=== PATIENT | female | born 1985 | race Caucasian/White ===

== ENCOUNTER 2016-09-29 13:24 | Emergency (ER) | payer OTHER ==
[~2016-09-29] VITALS: Ht 162.6 cm; Wt 113.0 kg
[2016-09-29 13:34] VITALS: TEMP 36.9; Ht 162.6 cm; Wt 113.0 kg
[2016-09-29] MEDS ORDERED: SUMA50TA15 PO (13:48)
[2016-09-29] MEDS ORDERED: KETOROLAC TROMETHAMINE 30 MG/ML VIAL IV STA (13:48)
[2016-09-29] MEDS ORDERED: AMIT10TA6 PO (13:48)
[2016-09-29] MEDS ORDERED: SODIUM CHLORIDE 0.9% 500ML 500 ML IV STA (13:48)
[2016-09-29] MEDS ORDERED: CITA10TA8 PO (13:48)
[2016-09-29] MEDS ORDERED: AMPICILLIN/SULBACTAM SOD INJ 3,000 MG in SODIUM CHLORIDE 0.9% 100ML 100 ML IV ONE (14:00)
[2016-09-29 14:05] LABS: BASO % 0.4 %; BASO ABS # 0.03 K/uL (0-0.2); COMPLETE YES; EOS % 0.4 %; HEMATOCRIT 40.5 % (37-47); IG% 0.3 %; LYMPH % 23.7 %; LYMPH ABS # 1.58 K/uL (1.2-3.4); MEAN CELL VOLUME 93.1 fL (80-100); MEAN CORPUSCULAR HEMOGLOBIN 30.3 pg (25-34); MEAN CORPUSCULAR HGB CONC 32.6 g/dl (32-36); MEAN PLATELET VOLUME 9.7 fL (7.4-10.4); NEUT % 63.2 %; PLATELET COUNT 239 K/uL (130-400); RED BLOOD COUNT 4.35 M/uL (4.2-5.4); WHITE BLOOD COUNT 6.67 K/uL (4.8-10.8)
--- NOTE | 2016-09-29 14:16 | DIAGNOSTIC IMAGING REPORT ---
LEFT HAND MIN 3 VIEWS ROUTINE CLINICAL HISTORY: Dog bite to L dorsal hand with cellulitis COMPARISON: None. DISCUSSION: The bones and joint spaces appear intact. There is no evidence of fracture, dislocation or bony disease. Marked soft tissue edematous change dorsal to the metacarpals. No abnormal periosteal reaction IMPRESSION: Considerable soft tissue edema. No acute bony abnormality. Electronically signed by: Chivo Bonds M.D. 09/29/2016 2:15 PM Dictated Date/Time: 09/29/2016 2:11 PM
[2016-09-29 14:22] LABS: BUN/CREATININE RATIO 10.6 (10-20); CALCIUM 8.1 mg/dl (8.5-10.1); POTASSIUM 3.9 mmol/L (3.5-5.1)
[2016-09-29 14:23] LABS: C-REACTIVE PROTEIN 2.96 mg/dl (0-0.29)
[2016-09-29] MEDS ORDERED: OXYC1TAB3 PO (14:37)
[2016-09-29] MEDS ORDERED: AMOX875T PO (14:37)
[2016-09-29 15:03] VITALS: BP 139/85; PULSE 91; O2SAT 99
--- NOTE | 2016-09-29 15:13 | EMERGENCY ROOM VISIT NOTE ---
History First contact with patient: 13:39 Chief Complaint: BITE Stated Complaint: DOG BITE History of Present Illness The patient is a 31 year old female who presents to the Emergency Room with complaints of a dog bite to the left hand. The patient reports that the injury happened approximately 48 hours ago. She was bitten by her brother's dog. The dog is up-to-date on its immunizations, and the patient's tetanus immunization is also up-to-date. The patient now reports redness and swelling of the dorsum of the hand. She denies any pain extending into the wrist or forearm. She also denies any paresthesias or numbness of the fingers. She reports that flexion and extension of the fingers worsens her pain. She denies any fevers or chills. She rates her discomfort a 10 out of 10. The patient is right-hand- dominant. Review of Systems 10 system review was performed and was negative except for pertinent positives and negatives as indicated in history of present illness Past Medical/Surgical History Medical Problems: (1) Bronchitis (2) section (3) Preeclampsia Family History Diabetes mellitus FH: cancer Hypertension Social History Smoking Status: Current Every Day Smoker Alcohol Use: none Drug Use: none Marital Status: Housing Status: lives with significant other Occupation Status: employed Current/Historical Medications Scheduled Amitriptyline Hcl (Elavil), 10 MG PO HS Amoxicillin & Pot Clavulanate (Augmentin 875-125 mg), 1 TAB PO BID Ascorbic Acid (Vitamin C), 1,000 MG PO HS Citalopram Hydrobromide (Celexa), 10 MG PO HS Scheduled PRN Albuterol Hfa (Ventolin Hfa), 2-4 PUFFS INH Q6H PRN for SOB/Wheezing Oxycodone Ir (Roxicodone Ir), 1 TAB PO Q4H PRN for Pain Sumatriptan Succinate (Imitrex), 50 MG PO PRN PRN for Migraine Allergies Coded Allergies: No Known Allergies (Verified , 09/29/16) Physical Exam Vital Signs Date Time Temp Pulse Resp B/P (MAP) Pulse Ox O2 Delivery O2 Flow Rate FiO2 09/29/16 15:03 91 18 139/85 99 09/29/16 13:34 36.9 102 18 141/83 97 Room Air Physical Exam CONSTITUTIONAL: Healthy and well nourished. Alert and oriented X 3 with positive affect. Patient does not appear in any acute distress. HEENT: Normocephalic, atraumatic. Pupils equal, round and reactive. NECK: Full active range of motion without discomfort. RESPIRATORY: Clear to auscultation bilaterally with no wheezing, crackles, rhonchi or stridor. CARDIOVASCULAR: Regular rate and rhythm with no murmurs, rubs or gallops. MUSCULOSKELETAL: Examination of the left hand shows 2 puncture wounds at the dorsal base of the hand. She has mild digital swelling. The dorsum of the hand is erythematous. The wounds are scabbed over. There is no underlying fluctuance or peripheral induration. She has no tenderness to palpation or erythema through the palm or volar wrist region. Capillary refill of the fingers is less than 2 seconds. INTEGUMENTARY: No rash or other significant dermatologic conditions noted. NEUROLOGIC: No focal neurologic deficits noted. Left hand and fingers are sensory intact. Medical Decision & Procedures ER Provider Diagnostic Interpretation: My interpretation of left hand x-rays does not show any acute fractures, dislocation, rating pick foreign bodies or periosteal reactions. Radiologist report is as follows: LEFT HAND MIN 3 VIEWS ROUTINE CLINICAL HISTORY: Dog bite to L dorsal hand with cellulitis COMPARISON: None. DISCUSSION: The bones and joint spaces appear intact. There is no evidence of fracture, dislocation or bony disease. Marked soft tissue edematous change dorsal to the metacarpals. No abnormal periosteal reaction IMPRESSION: Considerable soft tissue edema. No acute bony abnormality. Laboratory Results 09/29/16 14:00 Red Blood Count 4.35, Mean Corpuscular Volume 93.1, Mean Corpuscular Hemoglobin 30.3, Mean Corpuscular Hemoglobin Concent 32.6, Mean Platelet Volume 9.7, Neutrophils (%) (Auto) 63.2, Lymphocytes (%) (Auto) 23.7, Monocytes (%) (Auto) 12.0, Eosinophils (%) (Auto) 0.4, Basophils (%) (Auto) 0.4, Neutrophils # (Auto ) 4.21, Lymphocytes # (Auto) 1.58, Monocytes # (Auto) 0.80, Eosinophils # (Auto ) 0.03, Basophils # (Auto) 0.03 09/29/16 14:00 Test 09/29/16 14:00 White Blood Count 6.67 K/uL (4.8-10.8) Red Blood Count 4.35 M/uL (4.2-5.4) Hemoglobin 13.2 g/dL (12.0-16.0) Hematocrit 40.5 % (37-47) Mean Corpuscular Volume 93.1 fL (80-100) Mean Corpuscular Hemoglobin 30.3 pg (25-34) Mean Corpuscular Hemoglobin Concent 32.6 g/dl (32-36) Platelet Count 239 K/uL (130-400) Mean Platelet Volume 9.7 fL (7.4-10.4) Neutrophils (%) (Auto) 63.2 % Lymphocytes (%) (Auto) 23.7 % Monocytes (%) (Auto) 12.0 % Eosinophils (%) (Auto) 0.4 % Basophils (%) (Auto) 0.4 % Neutrophils # (Auto) 4.21 K/uL (1.4-6.5) Lymphocytes # (Auto) 1.58 K/uL (1.2-3.4) Monocytes # (Auto) 0.80 K/uL (0.11-0.59) Eosinophils # (Auto) 0.03 K/uL (0-0.5) Basophils # (Auto) 0.03 K/uL (0-0.2) RDW Standard Deviation 48.3 fL (36.4-46.3) RDW Coefficient of Variation 14.2 % (11.5-14.5) Immature Granulocyte % (Auto) 0.3 % Immature Granulocyte # (Auto) 0.02 K/uL (0.00-0.02) Erythrocyte Sedimentation Rate 24 mm/hr (0-21) Anion Gap 6.0 mmol/L (3-11) Est Creatinine Clear Calc Drug Dose 101.3 ml/min Estimated GFR () 87.6 Estimated GFR (Non- 75.5 BUN/Creatinine Ratio 10.6 (10-20) Calcium Level 8.1 mg/dl (8.5-10.1) C-Reactive Protein 2.96 mg/dl (0-0.29) The above labs were reviewed. There is no leukocytosis. Sedimentation rate and CRP are moderately elevated. Remaining electrolytes are also normal. Medications Administered Medications (Trade) Dose Ordered Sig/Sandrine Route Start Time Stop Time Status Last Admin Dose Admin Sodium Chloride 500 ml @ 999 mls/hr Q31M STAT IV 09/29/16 13:48 09/29/16 14:18 DC 09/29/16 14:00 999 MLS/HR Ampicillin Sodium/ Sulbactam Sodium 3000 mg/Sodium Chloride 108 ml @ 200 mls/hr ONE ONCE IV 09/29/16 14:00 09/29/16 14:32 DC 09/29/16 14:10 200 MLS/HR Ketorolac Tromethamine (Toradol Inj) 30 mg NOW STAT IV 09/29/16 13:48 09/29/16 13:49 DC 09/29/16 14:00 30 MG Procedure 1. IV hydration: The patient received a normal saline 500 mL bolus 2. IV medications: Unasyn 3 g IV infusion. The patient was also administered Toradol 30 mg IVP for pain. ED Course Patient history and physical exam were performed. Nurse's notes were reviewed. Vital signs were reviewed, showing a blood pressure 141/83. Pulse rate is 102. The patient is currently afebrile. IV access was established, and labs were drawn. The patient was hydrated with normal saline, and received IV Unasyn and Toradol. X-rays of the left hand were normal. Review of labs shows an elevated sedimentation rate and CRP. White count is otherwise normal. The patient was instructed to return in 24 hours for wound recheck, returning sooner for any erythema or edema progressing into the wrist or forearm region. She was also instructed to return sooner for any developing infection. The patient was provided prescriptions for Augmentin and OxyIR 5 mg. She was also encouraged to alternate ibuprofen and Tylenol for additional baseline pain relief. The patient was happy with plan of care, voiced understanding of all discharge instructions, and rated her pain a 4 out of 10 at the time of discharge. Medical Decision [place] Drug Monitoring Program Search Results: patient reviewed within database, no issues identified Impression Primary Impression: Dog bite of left hand with infection Departure Information Prescriptions Oxycodone Ir (Roxicodone Ir) 5 Mg Tab 1 TAB PO Q4H Y for Pain, #15 TAB For Initial Treatment Prov: Florian Sorensen PA 09/29/16 Amoxicillin & Pot Clavulanate (Augmentin 875-125 mg) 1 Tab Tab 1 TAB PO BID for 10 Days, #20 TAB Prov: Florian Sorensen PA 09/29/16 Referrals No Doctor, Assigned (PCP) Patient Instructions [facility] Problem Qualifiers Primary Impression: Dog bite of left hand with infection Encounter type: initial encounter Qualified Codes: S61.452A - Open bite of left hand, initial encounter; L08.9 - Local infection of the skin and subcutaneous tissue, unspecified; W54.0XXA - Bitten by dog, initial encounter
[2016-11-12] MEDS ORDERED: VNTHFA/IN INH (11:28)
[2016-11-12] MEDS ORDERED: ASCO500T3 PO (13:48)
== END 2016-09-29 15:05 | disposition home or self-care (01) ==
LOC: C.EDB 13:26 → C.EDA 15:05
DX: S61.452A Open bite of left hand, initial encounter (principal); L08.9 Local infection of the skin and subcutaneous tissue, unspecified; W54.0XXA Bitten by dog, initial encounter; Y92.89 Other specified places as the place of occurrence of the external cause; F17.210 Nicotine dependence, cigarettes, uncomplicated; Z79.899 Other long term (current) drug therapy

== ENCOUNTER 2016-11-12 18:17 | Emergency (ER) | payer OTHER ==
[~2016-11-12] VITALS: Ht 164.5 cm; Wt 109.4 kg
[~2016-11-12 18:17] MED LIST: AMIT10TA6 PO; ASCO500T3 PO; CITA10TA8 PO; OXYC1TAB3 PO; SUMA50TA15 PO; VNTHFA/IN INH
[2016-11-12 18:21] VITALS: TEMP 36.9; Ht 164.5 cm; Wt 109.4 kg
[2016-11-12] MEDS ORDERED: KETOROLAC TROMETHAMINE 30 MG/ML VIAL IV STA (19:42)
[2016-11-12] MEDS ORDERED: SODIUM CHLORIDE 0.9% 1000ML 1,000 ML IV STA ×2 (19:42)
[2016-11-12] MEDS ORDERED: ONDANSETRON INJ 2 MG/ML 2 ML VIAL IV STA (19:42)
[2016-11-12] MEDS ORDERED: MoRPHine SULFATE 4 MG/ML 1 ML CARP\\VIAL IV STA (19:42)
[2016-11-12 19:56] LABS: BASO % 0.2 %; BASO ABS # 0.02 K/uL (0-0.2); COMPLETE YES; EOS % 0.9 %; HEMATOCRIT 42.2 % (37-47); IG% 0.1 %; LYMPH % 30.7 %; LYMPH ABS # 3.19 K/uL (1.2-3.4); MEAN CELL VOLUME 92.5 fL (80-100); MEAN CORPUSCULAR HEMOGLOBIN 30.5 pg (25-34); MEAN CORPUSCULAR HGB CONC 32.9 g/dl (32-36); MEAN PLATELET VOLUME 10.3 fL (7.4-10.4); MONO % 5.7 %; NEUT % 62.4 %; PLATELET COUNT 267 K/uL (130-400); RED BLOOD COUNT 4.56 M/uL (4.2-5.4)
[2016-11-12 20:05] LABS: URINE APPEARANCE CLEAR (CLEAR); URINE BILIRUBIN NEG (NEG); URINE COLOR YELLOW; URINE NITRITE NEG (NEG); URINE PH 5.5 (4.5-7.5); UROBILINOGEN NEG (NEG)
[2016-11-12 20:06] LABS: MANUAL MICROSCOPIC REQUIRED? NO; REVIEW REQ? NO
[2016-11-12 20:15] LABS: BUN/CREATININE RATIO 10.5 (10-20); CREATININE 0.86 mg/dl (0.60-1.20); POTASSIUM 3.7 mmol/L (3.5-5.1)
[2016-11-12] MEDS ORDERED: IMT50 PO (20:15)
[2016-11-12] MEDS ORDERED: AMT10 PO (20:15)
[2016-11-12] MEDS ORDERED: CITA10TA4 PO (20:15)
[2016-11-12 20:19] VITALS: BP 137/67; PULSE 82; O2SAT 98
[2016-11-12 20:25] LABS: THYROID STIMULATING HORMONE 2.04 uIu/ml (0.300-4.500)
--- NOTE | 2016-11-12 21:21 | DIAGNOSTIC IMAGING REPORT ---
ULTRASOUND OF THE PELVIS CLINICAL HISTORY: Postcoital pelvic pain. Irregular menses. COMPARISON STUDY: No priors. TECHNIQUE: Real-time, grayscale, and color flow sonography of the pelvis is performed both transabdominally and endovaginally. Images are reviewed in the transverse and longitudinal planes. FINDINGS: Uterus: The retroflexed uterus is normal in size and echotexture, measuring 8.6 x 4.4 x 5.9 cm. Small the both in cysts are incidentally noted. Endometrium: The endometrium is normal in appearance, and the endometrial stripe is mildly thickened measuring up to 1.3 cm. Ovaries: The ovaries are normal in size and morphology. The right ovary measures 3.6 x 2.4 x 3.1 cm and the left ovary measures 2.5 x 1.9 x 2.6 cm. The right ovary was only seen transabdominally. Small follicles are identified. Normal Doppler waveforms are shown within both ovaries. Pelvis: There is no free fluid in the cul-de-sac. No concerning adnexal lesion is seen. IMPRESSION: No acute sonographic abnormality is identified. Electronically signed by: Cortez Ugarte M.D. 11/12/2016 9:20 PM Dictated Date/Time: 11/12/2016 9:18 PM
--- NOTE | 2016-11-12 22:02 | EMERGENCY ROOM VISIT NOTE ---
History First contact with patient: 19:08 Chief Complaint: ABDOMINAL PAIN Stated Complaint: POSSIBLE ECTOPIC PREG, SPOTTING Nursing Triage Summary: abd pain and cramping, symptoms. History of Present Illness Patient is a 31-year-old female whom the emergency department for evaluation of pelvic pain, spotting and irregular menses. She states that she has had abnormal menstrual periods for the last 2 months. She states that she has normal bleeding for about 3 days, then the bleeding stops for a couple days , that she has light bleeding for another 1-2 days. Her last menstrual period was 10/23/16. She is also noted pain after intercourse for a couple of weeks, although she denies dyspareunia. In the last week she has had cramping in the right lower quadrant, over her section scar. In the last 2 days it has become worse and more constant. She is status post 3, had a tubal ligation with her last in 2012. She has not been seen by OB/ [facility] since then. She did not have her 6 week follow-up. She is not had a Pap smear in roughly 4 years. She denies a history of abnormal Pap smears. She is not experiencing any vaginal discharge. No prior history of ovarian cysts or pelvic infections. She took several home tests which were negative. She called [facility] today to make an appointment, which is set up for January. She became concerned when office staff could not find documentation of her tubal ligation in her [facility] record. She is concerned that she could be and that it could be an ectopic . She denies any urinary symptoms. She states that her bowel movements range between constipation and diarrhea, but this is the normal for her. She does admit that she is involved with a new sexual partner, has been having unprotected intercourse since August of this year. Review of Systems Review of systems as per HPI. All other systems reviewed were negative. 10 systems reviewed. Past Medical/Surgical History Medical Problems: (1) Anxiety (2) Asthma, Unspecified (3) Back pain with sciatica of right side (4) Bronchitis (5) Bronchitis (6) section (7) Depressive Disorder Nec (8) Dermatitis (9) Dermatitis (10) Dog bite (11) Dog bite of left hand with infection (12) Dog bite of left hand with infection (13) Facial abrasion (14) Heel pain, bilateral (15) Heel spur (16) Pain, dental (17) Preeclampsia (18) Preseptal cellulitis of left eye (19) Spasm of back muscles (20) Spasm of back muscles Surgical Problems: (1) Hx of section Electronic medical records are reviewed and summarized as above/below. See Problem List. Family History Diabetes mellitus FH: cancer Hypertension Social History Smoking Status: Current Every Day Smoker Alcohol Use: none Drug Use: none Marital Status: in relationship Housing Status: lives with family, lives with significant other Occupation Status: employed Current/Historical Medications Scheduled Amitriptyline HCl (Amitriptyline HCl), 10 MG PO HS Ascorbic Acid (Vitamin C), 1,000 MG PO HS Citalopram Hydrobromide (Citalopram Hydrobromide), 10 MG PO HS Scheduled PRN Albuterol Hfa (Ventolin Hfa), 2 PUFFS INH QID PRN for Cough/Shortness of Breath Sumatriptan Succinate (Sumatriptan Succinate), 50 MG PO UD PRN for Migraine Allergies Coded Allergies: No Known Allergies (Verified , 09/29/16) Physical Exam Vital Signs Date Time Temp Pulse Resp B/P (MAP) Pulse Ox O2 Delivery O2 Flow Rate FiO2 11/12/16 20:19 82 17 137/67 98 Room Air 11/12/16 18:21 36.9 102 17 145/93 98 Room Air Physical Exam CONSTITUTIONAL: Patient is an overweight 31-year-old white female who is awake and alert and in mild distress due to her right-sided abdominal pain. EYES: Pupils equal, round, reactive to light and accommodation. EOMs intact without nystagmus. Sclera are anicteric. ENT: Tympanic membranes intact, with normal landmarks. External canals are clear. Oral and nasopharynx are clear. Mucous membranes are moist, no lesions , tongue and gums appear normal. NECK: No bruits auscultated. Supple without lymphadenopathy. No thyromegaly. No meningeal signs. Full active range of motion without discomfort. CARDIOVASCULAR: Regular rate and rhythm, with normal S1 and S2, no murmur or gallop or rub is heard. No carotid bruits auscultated. No JVD. Peripheral pulses easily palpable. RESPIRATORY: Breath sounds equal and clear to auscultation without wheezes, rales, or rhonchi heard. Full and equal chest expansion without accessory muscle use or retractions. ABDOMEN: Bowel sounds are present. Abdomen is soft, obese, nondistended, tender to deep palpation in the right lower quadrant, just off of the end of her scar from her section which is well healed. There is no guarding, rebound or rigidity. INTEGUMENTARY: No lesions or rash, normal skin turgor. LYMPH: No lymphadenopathy. Medical Decision & Procedures ER Provider Diagnostic Interpretation: ULTRASOUND OF THE PELVIS CLINICAL HISTORY: Postcoital pelvic pain. Irregular menses. COMPARISON STUDY: No priors. TECHNIQUE: Real-time, grayscale, and color flow sonography of the pelvis is performed both transabdominally and endovaginally. Images are reviewed in the transverse and longitudinal planes. FINDINGS: Uterus: The retroflexed uterus is normal in size and echotexture, measuring 8.6 x 4.4 x 5.9 cm. Small the both in cysts are incidentally noted. Endometrium: The endometrium is normal in appearance, and the endometrial stripe is mildly thickened measuring up to 1.3 cm. Ovaries: The ovaries are normal in size and morphology. The right ovary measures 3.6 x 2.4 x 3.1 cm and the left ovary measures 2.5 x 1.9 x 2.6 cm. The right ovary was only seen transabdominally. Small follicles are identified. Normal Doppler waveforms are shown within both ovaries. Pelvis: There is no free fluid in the cul-de-sac. No concerning adnexal lesion is seen. IMPRESSION: No acute sonographic abnormality is identified. Laboratory Results 11/12/16 19:45 Red Blood Count 4.56, Mean Corpuscular Volume 92.5, Mean Corpuscular Hemoglobin 30.5, Mean Corpuscular Hemoglobin Concent 32.9, Mean Platelet Volume 10.3, Neutrophils (%) (Auto) 62.4, Lymphocytes (%) (Auto) 30.7, Monocytes (%) (Auto) 5.7, Eosinophils (%) (Auto) 0.9, Basophils (%) (Auto) 0.2, Neutrophils # (Auto) 6.50, Lymphocytes # (Auto) 3.19, Monocytes # (Auto) 0.59, Eosinophils # (Auto) 0.09, Basophils # (Auto) 0.02 11/12/16 19:45 Test 11/12/16 19:12 11/12/16 19:45 Urine Color YELLOW Urine Appearance CLEAR (CLEAR) Urine pH 5.5 (4.5-7.5) Urine Specific [place] 1.010 (1.000-1.030) Urine Protein NEG (NEG) Urine Glucose (UA) NEG (NEG) Urine Ketones NEG (NEG) Urine Occult Blood NEG (NEG) Urine Nitrite NEG (NEG) Urine Bilirubin NEG (NEG) Urine Urobilinogen NEG (NEG) Urine Leukocyte Esterase NEG (NEG) White Blood Count 10.40 K/uL (4.8-10.8) Red Blood Count 4.56 M/uL (4.2-5.4) Hemoglobin 13.9 g/dL (12.0-16.0) Hematocrit 42.2 % (37-47) Mean Corpuscular Volume 92.5 fL (80-100) Mean Corpuscular Hemoglobin 30.5 pg (25-34) Mean Corpuscular Hemoglobin Concent 32.9 g/dl (32-36) Platelet Count 267 K/uL (130-400) Mean Platelet Volume 10.3 fL (7.4-10.4) Neutrophils (%) (Auto) 62.4 % Lymphocytes (%) (Auto) 30.7 % Monocytes (%) (Auto) 5.7 % Eosinophils (%) (Auto) 0.9 % Basophils (%) (Auto) 0.2 % Neutrophils # (Auto) 6.50 K/uL (1.4-6.5) Lymphocytes # (Auto) 3.19 K/uL (1.2-3.4) Monocytes # (Auto) 0.59 K/uL (0.11-0.59) Eosinophils # (Auto) 0.09 K/uL (0-0.5) Basophils # (Auto) 0.02 K/uL (0-0.2) RDW Standard Deviation 48.5 fL (36.4-46.3) RDW Coefficient of Variation 14.2 % (11.5-14.5) Immature Granulocyte % (Auto) 0.1 % Immature Granulocyte # (Auto) 0.01 K/uL (0.00-0.02) Anion Gap 6.0 mmol/L (3-11) Est Creatinine Clear Calc Drug Dose 117.2 ml/min Estimated GFR () 105.1 Estimated GFR (Non- 90.7 BUN/Creatinine Ratio 10.5 (10-20) Calcium Level 9.0 mg/dl (8.5-10.1) Thyroid Stimulating Hormone (TSH) 2.040 uIu/ml (0.300-4.500) Human Chorionic Gonadotropin, Quant < 1 mIU/mL Medications Administered Medications (Trade) Dose Ordered Sig/Sandrine Route Start Time Stop Time Status Last Admin Dose Admin Ketorolac Tromethamine (Toradol Inj) 30 mg NOW STAT IV 11/12/16 19:42 11/12/16 19:44 DC 11/12/16 19:42 30 MG Sodium Chloride 1,000 ml @ 999 mls/hr Q1H1M STAT IV 11/12/16 19:42 11/12/16 20:42 DC 11/12/16 19:42 999 MLS/HR Sodium Chloride 1,000 ml @ 250 mls/hr Q4H STAT IV 11/12/16 19:42 11/12/16 22:09 DC 11/12/16 19:42 250 MLS/HR Ondansetron HCl (Zofran Inj) 4 mg NOW STAT IV 11/12/16 19:42 11/12/16 19:44 DC 11/12/16 19:42 4 MG Morphine Sulfate (MoRPHine SULFATE INJ) 4 mg NOW STAT IV 11/12/16 19:42 11/12/16 19:44 DC 11/12/16 19:42 4 MG ED Course The patient was seen and evaluated as above. Her old records are reviewed. IV lock was initiated and she was hydrated with normal saline solution. She was medicated with Toradol 30 mg, morphine 4 mg and Zofran 4 mg IV. Laboratory studies were collected including CBC with differential, BMP, TSH and quantitative hCG. Urinalysis was also performed. Laboratory studies noted a normal white count. H&H 13.9 and 42.2. Electrolytes are within normal limits. Renal functions are not elevated. TSH is indicative of a euthyroid state and quantitative hCG is less than 1. Urinalysis was completely clear without signs of infection. Pelvic ultrasound was obtained, and was unremarkable. There were no adnexal lesions, no free pelvic fluid, normal Doppler waveforms were shown to both ovaries. Patient ultrasound report had just resulted, and I had ordered a pelvic set up for cultures, when I was notified by her primary nurse, Pratima Hanson, at the patient had left the emergency department prior to completion of her treatment. She reported she was leaving with her friend to go have a cigarette. She was told that there is no smoking on hospital property and she expressed understanding of this. Please refer to Pratima Hanson's documentation for further information. As the patient left the emergency department prior to completion of her care, she was discharged AMA. Differential diagnoses entertained included UTI, pyelonephritis, , ectopic , ovarian cyst, ovarian torsion, PID, tubo-ovarian abscess, appendicitis, hernia, among others. Medication reconciliation: I attest that I have personally reviewed the patient' s current medication list. Blood pressure screening: Patient was found to have a slightly elevated blood pressure due to circumstances. I do not believe that the patient requires hypertension monitoring. Medical Decision see Emergency Department course [place] Drug Monitoring Program Search Results: patient reviewed within database, no issues identified Impression Primary Impression: Pelvic pain Departure Information Referrals No Doctor, Assigned (PCP) Patient Instructions [facility]
== END 2016-11-12 21:35 | disposition left against medical advice (07) ==
LOC: C.EDB 18:19
DX: R10.2 Pelvic and perineal pain (principal); N92.6 Irregular menstruation, unspecified; F41.9 Anxiety disorder, unspecified; J45.909 Unspecified asthma, uncomplicated; F32.9 Major depressive disorder, single episode, unspecified; F17.200 Nicotine dependence, unspecified, uncomplicated; Z98.51 Tubal ligation status; Z83.3 Family history of diabetes mellitus; Z82.49 Family history of ischemic heart disease and other diseases of the circulatory system

== ENCOUNTER 2016-11-12 21:48 | Emergency (ER) | payer OTHER ==
[~2016-11-12] VITALS: Ht 162.6 cm; Wt 109.3 kg
[~2016-11-12 21:48] MED LIST changes: +AMT10 PO; +CITA10TA4 PO; +IMT50 PO
[2016-11-12 21:50] VITALS: Ht 162.6 cm; Wt 109.3 kg
--- NOTE | 2016-11-12 23:08 | DIAGNOSTIC IMAGING REPORT ---
CT SCAN OF THE ABDOMEN AND PELVIS WITHOUT IV CONTRAST CLINICAL HISTORY: Right flank pain. COMPARISON STUDY: Pelvic ultrasound dated 11/12/2016. TECHNIQUE: CT scan of the abdomen and pelvis is performed from the lung bases to the proximal femora. Images are reviewed in the axial, sagittal, and coronal planes. IV contrast was not administered for this examination as per the referring clinician. Note that the examination is suboptimal without oral and IV contrast. Automated dose control exposure was utilized. A dose lowering technique was utilized adhering to the principles of ALARA. CT DOSE: 1622.90 mGy.cm FINDINGS: Lung bases: The heart is normal in size and without pericardial effusion. The lung bases are clear. Liver: The unenhanced liver is enlarged, measuring 20.3 cm in length. The liver demonstrates diminished attenuation consistent with mild hepatic steatosis. Fatty sparing is seen adjacent to gallbladder fossa. There is no intrahepatic biliary ductal dilatation. Gallbladder: Unremarkable. Spleen: Normal in size and attenuation. Pancreas: Unremarkable. Adrenal glands: Unremarkable. Kidneys: The unenhanced kidneys are normal in size and without hydronephrosis. There are no renal calculi identified. There is no evidence of contour deforming renal mass lesion. Abdominal vasculature: The abdominal aorta is normal in course and caliber. Bowel: The small bowel and colon are normal in course and caliber. The appendix is well-visualized and normal. Peritoneum: There is no intraperitoneal free air or abdominal ascites. There is a fat-containing umbilical hernia. A naval piercing is noted. Lymphadenopathy: None. Pelvic viscera: The bladder, uterus, and adnexa are normal as visualized. Small ovarian follicles are noted. Trace free fluid in the cul-de-sac is likely within physiologic limits. Skeletal structures: No lytic or blastic lesions are seen. IMPRESSION: 1. There are no acute infectious or inflammatory findings in the abdomen or pelvis. 2. Hepatomegaly and mild hepatic steatosis. Electronically signed by: Cortez Ugarte M.D. 11/12/2016 11:07 PM Dictated Date/Time: 11/12/2016 11:04 PM
--- NOTE | 2016-11-12 23:13 | EMERGENCY ROOM VISIT NOTE ---
ED Visit Note First contact with patient: 21:49 ED COURSE: Continuation of patient's prior visit from same DOS, [id number]. Patient was seen by myself for complaints of pelvic pain and irregular vaginal bleeding. Prior to completion of her care, patient eloped from the emergency department to have a cigarette with her friend. When she returned to the emergency Department roughly half an hour later, she was reregistered and placed under this new V number. Please refer to prior dictation for further information. Patient was assessed upon returning to the exam room. All laboratory and diagnostic imaging studies were reviewed with her. Her test was negative, urinalysis was clear, CBC and BMP were unremarkable, and pelvic ultrasound did not reveal any acute abnormality. Pelvic exam was performed and cultures were obtained. Given her right lower quadrant pain, CT scan of the abdomen and pelvis was obtained. Pelvic Exam: Genitalia are normal Vagina is clean Cervix is without lesions, no cervical motion tenderness. The uterus is small, nontender The adnexa no masses, nontender CT scan of the abdomen and pelvis was unremarkable. No acute intra-abdominal findings were noted. Hepatomegaly and hepatic steatosis were noted. CT SCAN OF THE ABDOMEN AND PELVIS WITHOUT IV CONTRAST CLINICAL HISTORY: Right flank pain. COMPARISON STUDY: Pelvic ultrasound dated 11/12/2016. TECHNIQUE: CT scan of the abdomen and pelvis is performed from the lung bases to the proximal femora. Images are reviewed in the axial, sagittal, and coronal planes. IV contrast was not administered for this examination as per the referring clinician. Note that the examination is suboptimal without oral and IV contrast. Automated dose control exposure was utilized. A dose lowering technique was utilized adhering to the principles of ALARA. CT DOSE: 1622.90 mGy.cm FINDINGS: Lung bases: The heart is normal in size and without pericardial effusion. The lung bases are clear. Liver: The unenhanced liver is enlarged, measuring 20.3 cm in length. The liver demonstrates diminished attenuation consistent with mild hepatic steatosis. Fatty sparing is seen adjacent to gallbladder fossa. There is no intrahepatic biliary ductal dilatation. Gallbladder: Unremarkable. Spleen: Normal in size and attenuation. Pancreas: Unremarkable. Adrenal glands: Unremarkable. Kidneys: The unenhanced kidneys are normal in size and without hydronephrosis. There are no renal calculi identified. There is no evidence of contour deforming renal mass lesion. Abdominal vasculature: The abdominal aorta is normal in course and caliber. Bowel: The small bowel and colon are normal in course and caliber. The appendix is well-visualized and normal. Peritoneum: There is no intraperitoneal free air or abdominal ascites. There is a fat-containing umbilical hernia. A naval piercing is noted. Lymphadenopathy: None. Pelvic viscera: The bladder, uterus, and adnexa are normal as visualized. Small ovarian follicles are noted. Trace free fluid in the cul-de-sac is likely within physiologic limits. Skeletal structures: No lytic or blastic lesions are seen. IMPRESSION: 1. There are no acute infectious or inflammatory findings in the abdomen or pelvis. 2. Hepatomegaly and mild hepatic steatosis. Patient was made aware of the results of her CT scan. Vaginal culture and swab for Chlamydia and gonorrhea are pending, however exam does not appear consistent with PID or cervicitis. At this point, I recommend waiting for the results of the cultures rather than treat empirically. Etiology of the patient' s discomfort is unclear at this time. Her ED workup today is relatively unremarkable. She was encouraged to follow-up with gynecology for further care and management of her symptoms. She is discharged home with a friend driving. DIAGNOSIS: Pelvic pain Abnormal vaginal bleeding DISCHARGE INSTRUCTIONS: DO NOT drive, drink alcohol, operate machinery, or perform dangerous activities today. You were given medications in the ER that can affect your ability to safely function or operate a vehicle. Ibuprofen(Motrin, Advil) may be used for fever or pain. Use 600mg every six hours as needed. Take with food. Avoid using more than 2400mg in a 24 hour period. Do not use 2400mg per day for more than three consecutive days without physician direction. Prolonged inappropriate use can lead to stomach upset or ulcers. This is available over the counter and typically comes in 200mg tablets. (AND/OR) Acetaminophen(Tylenol) may be used for fever or pain. Use 1000mg every eight hours as needed. Avoid using more than 3000mg in a 24 hour period. This is available over the counter. Continue current medications. Heating pad to the abdomen as needed for discomfort. Diet as tolerated. Return to the ER immediately for worsening or persistent abdominal pain, vomiting, fevers, chest pains, difficulty breathing, black or bloody stools, worsening of your condition, or as needed. Follow up with [facility] for further care and evaluation of her symptoms. We will contact you if your culture results require treatment.
[2016-11-12 23:22] VITALS: BP 140/89; PULSE 83; TEMP 36.7; O2SAT 96
[2016-11-14 14:31] LABS: CHLAMYDIA TRACH RNA*** NOT DETECTED (NOT DETECTED); GC (NEIS GONORRHOEAE)RNA** NOT DETECTED (NOT DETECTED)
--- NOTE | 2016-11-14 15:57 | Pharmacy Progress Note ---
ED Pharmacist Culture FollowUp Date of Service: Nov 14, 2016. Genital culture with Gardnerella. Many clue cells seen. Patient with pelvic pain. Case discussed with Maddy White PA-C who wishes to start metronidazole 500 mg po BID x7 days. Patient should avoid alcohol while taking this antibiotic. Called patient - left message to call back.
== END 2016-11-12 23:22 | disposition home or self-care (01) ==
LOC: C.EDB 21:48 → C.EDC 23:22
DX: R10.2 Pelvic and perineal pain (principal); N93.9 Abnormal uterine and vaginal bleeding, unspecified